=== PATIENT | female | born 2000 | race Two or more races ===

== ENCOUNTER → 2024-02-08 | Outpatient (CLI) | payer BC, SELFPAY ==
--- NOTE | 2024-02-08 10:00 | XR_ITS ---
Examination: MRI brain without intravenous contrast. Date and time of exam: February 08, 2024 1128 hrs. Indications: Dizziness episodes weakness 5 years Technique: Multiple axial and sagittal images of the brain obtained. Siemens high-resolution 1.5 Alis short bore scanners utilized. Sagittal sections, T1-weighted, TR 500, TE 14, are performed. Axial sections proton-density and T2-weighted have been obtained. Inversion recovery axial images, TR 9, 260, TE 111, TI 2500. Diffusion weighted images, axial sections, TR 4800, TE 128, B value 1000 Axial sections, ADC map, TR 4800, TE 128 Findings: Enlargement of the sella turcica is not present. The optic chiasm and infundibular are not remarkable. Prepontine and interpeduncular cisterns are not enlarged. There is no localized enlargement of the medulla or wolf. Fourth ventricle and cerebellar tonsils appear normal in position. No subacute area of hemorrhage density is seen. Mass in the cerebellopontine angle region is not evident. Globes symmetrical. Orbital musculature including medial lateral rectus muscles do not exhibit abnormality. Diffusion-weighted images demonstrate no focus of restricted diffusion. Increased white matter signal not seen Mass effect upon the ventricular system is not identified. Impression: Negative for acute hemorrhage, mass effect or midline shift No acute infarct No MR findings diagnostic for demyelinating disease
--- NOTE | 2024-02-08 10:30 | XR_ITS ---
Examination: MRI cervical spine without intravenous contrast Date and time of exam: February 08, 2024 11:46 AM Indications: Neck pain radiating down the arms 2 years Technique: Multiple axial and sagittal sections of the cervical spine to been obtained. T2 weighted sagittal sections, TR 3, 270, TE 117 T1-weighted sagittal sections, TR 500, TE 11 T1-weighted axial sections, TR 607, TE 12, axial sections TR 18, TE 27 and T2 weighted transverse sections, TR 3920, TE 122. Findings: Satisfactory alignment cervical vertebral bodies No cervical fracture Intact odontoid Disc desiccation C5-C6 No localized enlargement cervical cord Axial images demonstrate no focal cervical disc protrusion Impression: No cervical fracture No significant cervical acquired spinal stenosis
== END | disposition home or self-care (01) ==
PROVIDERS: PCP Nurse Practitioner Family; Referring Provider Nurse Practitioner Family; Visit Provider Nurse Practitioner Family
DX: R42 Dizziness and giddiness (principal); M54.2 Cervicalgia
CPT/HCPCS: 70551; 72141

== ENCOUNTER → 2024-02-21 | Outpatient (CLI) | payer BC, SELFPAY | END | disposition home or self-care (01) | LOC: SLDO 12:33 | PROVIDERS: PCP Nurse Practitioner Family; Referring Provider Nurse Practitioner Family; Visit Provider Nurse Practitioner Family | DX: M79.10 Myalgia, unspecified site (principal) | CPT/HCPCS: 87015; 87045; 87046; 87177; 87209; 87899 ==

== ENCOUNTER → 2024-02-25 | Outpatient (CLI) | payer BC, SELFPAY ==
[2024-02-25 18:16] LABS: Syphilis Nonreactive (Nonreactive)
[2024-02-26 11:19] LABS: Chlamydia trachomatis PCR Negative (Not Detect); Neisseria Gonorrhoeae DNA PCR Negative (Not Detect); Trichomonas Negative (Negative)
[2024-03-02 06:54] LABS: HLA-B27 Antigen* NEGATIVE (NEGATIVE)
== END | disposition home or self-care (01) ==
LOC: COPL 16:43
PROVIDERS: PCP Nurse Practitioner Family; Referring Provider Internal Medicine Rheumatology; Visit Provider Internal Medicine Rheumatology
DX: Z01.89 Encounter for other specified special examinations (principal); M02.30 Reiter's disease, unspecified site
CPT/HCPCS: 36415; 86780; 86812; 87491; 87591; 87661

== ENCOUNTER → 2024-07-17 | Outpatient (CLI) | payer BC, SELFPAY ==
[2024-07-17 11:27] LABS: Quantiferon-TB* See Sep Rpt
[2024-07-17 11:49] LABS: Collection Type, Urine Clean Catch; WBC,Urine 0 /hpf (0-5)
[2024-07-17 11:58] LABS: Basophils % (Auto) 1 % (0-2.5); Eosinophils # (Auto) 0.1 Thou/mm3 (0.0-0.5); Eosinophils % (Auto) 2 % (0-10); Hematocrit 37.7 % (36.0-46.0); Hemoglobin 12.9 g/dL (12.0-16.0); Immature Granulocytes % (Auto) 0 % (0-0); Immature Granulocytes Auto 0.02 Thou/mm3 (0.00-0.00); Lymphocytes # (Auto) 1.1 Thou/mm3 (1.0-4.8); Lymphocytes % (Auto) 14 % (10-50); Mean Corpuscular HGB Conc 34.2 g/dl (31.0-37.0); Mean Corpuscular Hemoglobin 27.7 pg (25.0-35.0); Mean Corpuscular Volume 81 fL (80-100); Monocytes # (Auto) 0.5 Thou/mm3 (0.0-0.8); Monocytes % (Auto) 7 % (0-12); Neutrophils # (Auto) 6.1 Thou/mm3 (1.8-7.7); Neutrophils % (Auto) 77 % (37-80); Nucleated Red Blood Cell % 0 /100 WBC (0); Platelet Count 300 Thou/mm3 (140-440); RDW Standard Deviation 41.9 fL (36.4-46.3); Red Blood Count 4.66 Miln/mm3 (4.00-5.20)
[2024-07-17 12:23] LABS: Alanine Aminotransferase 11 U/L (10-49); Aspartate Amino Transferase 17 U/L (0-34); C-Reactive Protein 0.7 mg/dL (0.0-0.9); Creatinine (Component) 0.8 mg/dL (0.6-1.3); Free T4 (Free Thyroxine) 1.18 ng/dL (0.89-1.76); Thyroid Stimulating Hormone 1.31 uIU/mL (0.55-4.78); eGFR > 60 See Note
[2024-07-17 12:23] LABS: Bacteria,Urine Rare; Bilirubin,Urine Negative (Negative); Blood,Urine Negative (Negative); Clarity,Urine Clear (Clear/Hazy); Culture Indicated,Urine Not Indicated; Glucose, Urine Negative (Negative); Ketones,Urine Negative (Negative); Leukocyte Esterase,Urine Negative (Negative); Nitrite,Urine Negative (Negative); PH,Urine 6.5 (5.0-7.0); Protein,Urine Negative (Neg - Trace); RBC,Urine < 1 /hpf (0-3); Specific Gravity,Urine 1.011 (1.001-1.035); Squamous Epithelial Cell,Urine < 1 /hpf (0-5); Urobilinogen,Urine Negative mg/dL (0.0-1.0)
[2024-07-17 12:34] LABS: Sed Rate (ESR) 49 mm/hr (0-20)
[2024-07-17 12:38] LABS: Color,Urine Lt-Yellow (Lt Yel-Yel)
[2024-07-17 12:58] LABS: Hepatitis A Antibody IgM Non Reactive (Non React); Hepatitis B Core Antibody IgM Non Reactive (Non React); Hepatitis B Surface Antigen Non Reactive (Non React); Hepatitis C Antibody Non Reactive (Non React)
[2024-07-17 14:40] LABS: Cocci Serology, IgM Negative (Negative)
[2024-07-17 16:10] LABS: RA Screen Positive (Negative)
[2024-07-18 15:08] LABS: Cocci Serology, IgG Negative (Negative)
[2024-07-23 23:34] LABS: Cardiolipin Ab (IgA) <2.0 APL-U/mL; Cardiolipin Ab (IgG) <2.0 GPL-U/mL; Sjogren's antibody (SS-A) <1.0 NEG AI (<1.0 NEGATIVE); Sm Antibody <1.0 NEG AI (<1.0 NEGATIVE)
[2024-07-24 06:52] LABS: ANA Screen, IFA NEGATIVE (NEGATIVE); CCP Antibody (IgG)* >250 Units; Cardiolipin Ab (IgM) <2.0 MPL-U/mL; Complement Component C3* 146 mg/dL (83-193); Complement Component C4c* 19 mg/dL (15-57); DNA (ds) Antibody* <1 IU/mL; HLA-B27 Antigen* NEGATIVE (NEGATIVE); Parvovirus B19 Ab IgG 5.8; Parvovirus B19 Ab IgM 0.1; Sjogren's Antibody (SS-B) <1.0 NEG AI (<1.0 NEGATIVE); Sm/RNP Antibody <1.0 NEG AI (<1.0 NEGATIVE); Thyroglobulin Antibodies* <1 IU/mL (< OR = 1); Thyroid Peroxidase Antibodies* 1 IU/mL (<9)
== END | disposition home or self-care (01) ==
LOC: COPL 10:24
PROVIDERS: PCP Family Medicine; Referring Provider Internal Medicine Rheumatology; Visit Provider Internal Medicine Rheumatology
DX: M25.50 Pain in unspecified joint (principal)
CPT/HCPCS: 36415; 80074; 81001; 82565; 84439; 84443; 84450; 84460; 84481; 85025; 85652; 86038; 86140; 86147; 86160; 86200; 86225; 86235; 86331; 86376; 86430; 86431; 86480; 86635; 86747; 86800; 86812

== ENCOUNTER → 2024-09-14 | Outpatient (CLI) | payer BC, SELFPAY ==
[2024-09-14 14:46] LABS: Collection Type, Urine Clean Catch
[2024-09-14 17:30] LABS: Bacteria,Urine Rare; Bilirubin,Urine Negative (Negative); Blood,Urine 2+ (Negative); Glucose, Urine Negative (Negative); Ketones,Urine Negative (Negative); Leukocyte Esterase,Urine Negative (Negative); Nitrite,Urine Negative (Negative); PH,Urine 6.0 (5.0-7.0); Protein,Urine Negative (Neg - Trace); RBC,Urine 2 /hpf (0-3); Specific Gravity,Urine 1.027 (1.001-1.035); Squamous Epithelial Cell,Urine 1 /hpf (0-5); Urobilinogen,Urine Negative mg/dL (0.0-1.0); WBC,Urine 2 /hpf (0-5)
[2024-09-14 17:36] LABS: Clarity,Urine Cloudy (Clear/Hazy); Color,Urine Lt-Yellow (Lt Yel-Yel)
== END | disposition home or self-care (01) ==
LOC: SLDO 14:28
PROVIDERS: PCP Registered Nurse; Referring Provider Registered Nurse; Visit Provider Registered Nurse
DX: N39.0 Urinary tract infection, site not specified (principal)
CPT/HCPCS: 81001; 87086

== ENCOUNTER → 2024-11-16 | Outpatient (CLI) | payer BC, SELFPAY ==
--- NOTE | 2024-11-16 13:00 | XR_ITS ---
Examination: Breast ultrasound, unilateral, left complete Date and time of exam: November 16 2024 1334 hours INDICATIONS: Palpable left axillary lump noticed beginning 3 weeks ago Technique: Real-time diego scale ultrasonographic imaging performed left breast including all 4 quadrants as well as nipple retroareolar and axillary region. Findings: No cystic or solid breast mass Multiple left axillary lymph nodes, the largest 20 mm IMPRESSION: BI-RADS Category 3: Probably benign axillary lymph nodes as above Suggest 6 month follow-up left breast axillary sonography as clinically warranted
== END | disposition home or self-care (01) ==
LOC: CDIM 12:44
PROVIDERS: PCP Family Medicine; Referring Provider Registered Nurse; Visit Provider Registered Nurse
DX: R22.9 Localized swelling, mass and lump, unspecified (principal)
CPT/HCPCS: 76641